=== PATIENT | female | born 1950 | race Caucasian/White ===

== ENCOUNTER → 2016-06-25 | Outpatient (REF) | payer MEDICARE, OTHER ==
[~2016-06-25] MED LIST: /AMLO25TA PO; /HCTZ25TA PO; ALBU17IN INH; AMLO5TAB2 PO; ASTE137S; CLAR10TA13 PO; HYDR7.5T30 PO; IBUP600T26 PO; IBUP80TA PO; KLOR20PO PO; METF500T PO; VALI5TAB PO; VENTAER INH; albuterol INH; tylenol #3 PO
[2016-06-25 21:40] LABS: PERCENT SATURATION 22.8 % (13.2-37.4)
== END ==
LOC: M SFHCADAM 14:41
PROVIDERS: ATTEND Family Medicine
DX: R19.4 Change in bowel habit (principal); R80.9 Proteinuria, unspecified; Z79.84 Long term (current) use of oral hypoglycemic drugs; Z79.899 Other long term (current) drug therapy; E11.9 Type 2 diabetes mellitus without complications
CPT/HCPCS: 82043; 82728; 83550; G0463

== ENCOUNTER → 2018-01-29 | Outpatient (CLI) | payer MEDICARE, OTHER | LOC: M RAD 10:27 | DX: C40.22 Malignant neoplasm of long bones of left lower limb (principal) | CPT/HCPCS: 78306 ==

== ENCOUNTER → 2018-02-14 | Outpatient (CLI) | payer MEDICARE, OTHER | LOC: M RAD 13:12 | DX: R93.7 Abnormal findings on diagnostic imaging of other parts of musculoskeletal system (principal); M25.562 Pain in left knee | CPT/HCPCS: 73721 ==

== ENCOUNTER → 2018-05-19 | Outpatient (REF) | payer MEDICARE, OTHER | LOC: M LAB REF 16:27 | PROVIDERS: ATTEND Ophthalmology | DX: L72.0 Epidermal cyst (principal) ==

== ENCOUNTER → 2019-04-14 | Outpatient (CLI) | payer MEDICARE, OTHER ==
[~2019-04-14] MED LIST changes: -/AMLO25TA PO; -/HCTZ25TA PO; +HYDR-3644 PO; +NORV2TAB PO
--- NOTE | 2019-04-14 12:04 | REP ---
BILATERAL SCREENING DIGITAL MAMMOGRAM WITH 3D TOMOSYNTHESIS: There are no palpable abnormalities or other breast complaints. The the patient states she is not had a clinical breast examination air. The Tyrer-Cuzick Score is: 5.0% . Comparison is 01/12/2014. There are scattered areas of fibroglandular density. There is no dominant mass, micro calcific cluster or architectural distortion that would indicate malignancy. There are benign calcifications bilaterally, not significantly changed. There are no additional findings on 3D tomosynthesiss. There is no change from the prior study. Impression: BIRADS/ACR category II mammogram. Benign findings. Recommendation: Routine annual screening mammography. This mammogram was interpreted with the aid of a FDA approved computer-aided detection system. A. Negative mammogram reports should not delay biopsy if a dominant or clinically suspicious mass is present. B. Not all breast cancers are identified by mammography or tomosynthesis. C. Adenosis and dense breasts may obscure an underlying neoplasm. Patient letter M1. Electronically Signed by Garry Lopez MD 04/14/2019 11:56 A
== END ==
LOC: M RAD 10:13
PROVIDERS: ATTEND Family Medicine
DX: Z12.31 Encounter for screening mammogram for malignant neoplasm of breast (principal)

== ENCOUNTER 2019-04-17 15:36 | Emergency (ER) | payer MEDICARE, OTHER ==
[~2019-04-17] VITALS: Ht 162.6 cm; Wt 71.9 kg
[2019-04-17] MEDS ORDERED: MAGN400C PO (15:50)
[2019-04-17] MEDS ORDERED: VITAD1000T PO (15:50)
[2019-04-17] MEDS ORDERED: NS 1,000 ML IV SCH (16:03)
[2019-04-17] MEDS ORDERED: ASPIRIN 81 MG CHEW TABLET PO ONE (16:15)
--- NOTE | 2019-04-17 16:49 | REP ---
Portable chest, 04:23 p.m., single AP view with the patient sitting: Comparisons are the chest CT dated 04/05/2015 and portable chest dated 11/26/2011. There are lung nodules in the lung bases bilaterally, unchanged from the comparison studies. By CT these are calcified granulomas. There is a mottled calcification projected over the liver. On the comparison CT there is a calcified liver mass. There are no infiltrates or effusions. The cardiac size is normal. The erasmo, mediastinum, skeletal structures are unremarkable. Impression: There are no acute cardiopulmonary findings. There are granulomas in the lungs bilaterally. There is a mottled calcified mass in the liver. Electronically Signed by Garry Lopez MD 04/17/2019 04:41 P
[2019-04-17 16:56] LABS: BASO % 0.4 % (0.0-1.0); EOS # 0.2 10^3/uL (0.0-0.5); EOS % 3.3 % (0.0-3.0); HEMATOCRIT 41.5 % (36.0-47.0); HEMOGLOBIN 13.3 g/dl (12.0-15.5); LYMPH # 1.8 10^3/uL (1.5-5.0); LYMPH % 25.5 % (24.0-44.0); MEAN CORPUSCULAR HEMOGLOBIN 28.5 pg (27.0-33.0); MEAN CORPUSCULAR VOLUME 89.1 fl (80.0-96.0); MONO # 0.5 10^3/uL (0.0-0.8); MONO % 7.3 % (0.0-5.0); NEUTROPHILS # 4.4 10^3/uL (1.5-8.5); NEUTROPHILS % 63.2 % (36.0-66.0); PLATELET COUNT, AUTOMATED 204 10^3/uL (150-450); RED BLOOD COUNT 4.66 10^6/uL (4.00-5.40)
[2019-04-17 17:16] LABS: INR 1.15; PROTHROMBIN TIME 14.4 SECONDS (11.8-14.0)
[2019-04-17] MEDS ORDERED: MECLIZINE 25 MG TABLET PO ONE (17:30)
[2019-04-17 17:32] LABS: ALBUMIN 3.8 GM/DL (3.2-5.2); ALT/SGPT 25 U/L (12-78); BILIRUBIN,DIRECT < 0.1 MG/DL (0.0-0.2); BILIRUBIN,TOTAL 0.3 MG/DL (0.2-1.0); BLOOD UREA NITROGEN 18 MG/DL (7-18); CALCIUM LEVEL 8.8 MG/DL (8.8-10.2); CARBON DIOXIDE LEVEL 30 MEQ/L (21-32); CHLORIDE LEVEL 108 MEQ/L (98-107); CK-MB VALUE MASS 1.5 NG/ML (<3.6); CPK CREATINE PHOSPHOKINASE 83 U/L (26-192); CREATININE FOR GFR 0.54 MG/DL (0.55-1.30); GLOMERULAR FILTRATION RATE > 60.0 (>45); GLUCOSE, FASTING 133 MG/DL (70-100); LIPASE 87 U/L (73-393); MB/CK RELATIVE INDEX 1.81 (< OR =4); NT-PRO BNP 113 PG/ML (<125); POTASSIUM SERUM 4.2 MEQ/L (3.5-5.1); SODIUM LEVEL 144 MEQ/L (136-145); TOTAL PROTEIN 7.1 GM/DL (6.4-8.2)
[2019-04-17] MEDS ORDERED: LABETALOL HCL 100 MG/20 ML VIAL IV STA ×2 (17:50→18:19)
[2019-04-17 17:57] LABS: TROPONIN I < 0.02 NG/ML (< 0.10)
[2019-04-17 18:32] VITALS: BP 180/76
[2019-04-17] MEDS ORDERED: MECL1TAB31 PO (19:06)
[2019-04-17 19:20] VITALS: BP 192/84
--- NOTE | 2019-04-17 21:58 | ECGEPIP ---
[facility] - ED Test Date: 2019-04-17 Pat Name: MANDI ROCHA Department: Room: - Gender: Female [employer] Content Specialist: : [id number] Requested By: REE CHILEL Order Number: [id number] Reading MD: Damion Garcia Measurements Intervals [place] Rate: 72 P: 36 OR: 167 QRS: -48 QRSD: 110 T: 60 QT: 401 QTc: 440 Interpretive Statements SINUS RHYTHM POSSIBLE LEFT ATRIAL ENLARGEMENT POOR R WAVE PROGRESSION LEFT ANTERIOR FASCICULAR BLOCK POSSIBLE LEFT VENTRICULAR HYPERTROPHY NO PRIORS FOR COMPARISON Electronically Signed on 04-17-2019 21:58:36 EST by Damion Garcia
== END 2019-04-17 19:21 | disposition home or self-care (01) ==
LOC: M ED 15:36
DX: R42 Dizziness and giddiness (principal); I10 Essential (primary) hypertension; Z88.2 Allergy status to sulfonamides; Z88.8 Allergy status to other drugs, medicaments and biological substances; Z88.1 Allergy status to other antibiotic agents; C34.90 Malignant neoplasm of unspecified part of unspecified bronchus or lung; C79.9 Secondary malignant neoplasm of unspecified site

== ENCOUNTER → 2019-04-29 | Outpatient (REF) | payer MEDICARE, OTHER ==
[~2019-04-29] MED LIST changes: +MAGN400C PO; +MECL1TAB31 PO; +VITAD1000T PO
[2019-04-29 14:34] LABS: APPEARANCE, URINE CLEAR (CLEAR); BACTERIA, URINE AUTO NEGATIVE (NEGATIVE); BILIRUBIN, URINE AUTO NEGATIVE (NEGATIVE); BLOOD, URINE BLOOD NEGATIVE (NEGATIVE); COLOR, URINE YELLOW (YELLOW); GLUCOSE, URINE (UA) AUTO NEGATIVE (NEGATIVE); KETONE, URINE AUTO NEGATIVE (NEGATIVE); LEUKOCYTE ESTERASE, URINE AUTO NEGATIVE (NEGATIVE); MUCUS, URINE SMALL (NEGATIVE); NITRITE, URINE AUTO NEGATIVE (NEGATIVE); PROTEIN, URINE AUTO NEGATIVE (NEGATIVE); RBC, URINE AUTO 1 /HPF (0-3); SPECIFIC GRAVITY URINE AUTO 1.013 (1.002-1.035); SQUAMOUS EPITHELIAL CELL UR AU 0 /HPF (0-6); UROBILINOGEN, URINE AUTO 0.2 mg/dL (0.0-2.0); WBC, URINE AUTO 0 /HPF (0-3)
== END ==
LOC: M SMT 12:54
PROVIDERS: ATTEND Nurse Practitioner Family
DX: R31.9 Hematuria, unspecified (principal)
CPT/HCPCS: 81001; 87086; G0463

== ENCOUNTER → 2019-05-23 | Outpatient (REF) | payer MEDICARE, OTHER | LOC: M LAB REF 10:18 | PROVIDERS: ATTEND Internal Medicine Cardiovascular Disease | DX: I11.9 Hypertensive heart disease without heart failure (principal) ==

== ENCOUNTER → 2019-05-24 | Outpatient (CLI) | payer MEDICARE, OTHER ==
--- NOTE | 2019-05-24 08:40 | REP ---
Renal Vascular Doppler Ultrasound: Right Kidney: Renal length the 10.5 cm. Extraparenchymal renal artery. Peak renal artery flow velocity the 216.3 cm/ sec Peak aortic velocity: 88.9 cm/sec Renal/aortic ratio: 2.4 Intraparenchymal renal arteries. Resistive index: upper pole 0.82 mid pole 0.83 lower pole 0.83 Acceleration time: upper pole 0.03 mid pole 0.02 lower pole 0.04 Left kidney: Renal length 12.6 cm. Extraparenchymal renal artery: Peak renal artery flow velocity: 170.4 cm/sec. Peak aortic velocity: 88.9 cm/sec Renal/aortic ratio: 1.9 Intraparenchymal renal arteries: Resistive index: Upper pole 0.77 mid pole 0.87 lower pole 0.82 Acceleration time: Upper pole 0.03 mid pole 0.03 lower pole 0.03 Impression: The peak right extrarenal artery peak flow velocity is elevated and the right renal/aortic ratio is borderline elevated. Additionally, the right kidney is 2 cm shorter in length and the left. These findings may represent right extrarenal artery stenosis . MRA or CTA might be considered for further evaluation. The resistive indices are mildly elevated bilaterally. This is nonspecific but may represent chronic renal disease. Bilateral renal ultrasound: The right kidney measures 10.5 x 6.6 x 5.2 cm. Left kidney measures 12.6 x 4.6 x 5.4 cm. The kidneys are normal size, however the right kidney is approximately 2 cm smaller in length and the left. There is no hydronephrosis on the right on the left. There are no renal calculi on the right on the left. There are no solid or cystic masses on the right on the left. Bladder: The bladder is empty and cannot be evaluated. Impression: Essentially negative renal ultrasound except that the right kidney is 2 cm smaller in length than left. Electronically Signed by Garry Lopez MD 05/24/2019 08:31 A
== END ==
LOC: M RAD 07:22
PROVIDERS: ATTEND Internal Medicine Cardiovascular Disease
DX: I12.9 Hypertensive chronic kidney disease with stage 1 through stage 4 chronic kidney disease, or unspecified chronic kidney disease (principal)

== ENCOUNTER → 2019-10-25 | Outpatient (REF) | payer MEDICARE, OTHER ==
[~2019-10-25] MED LIST changes: +D31000TA2 PO; -VITAD1000T PO
[2019-12-08 18:10] LABS: ALBUMIN 3.8 GM/DL (3.2-5.2); BLOOD UREA NITROGEN 18 MG/DL (7-18); CALCIUM LEVEL 9.2 MG/DL (8.8-10.2); CARBON DIOXIDE LEVEL 32 MEQ/L (21-32); CHLORIDE LEVEL 104 MEQ/L (98-107); CREATININE FOR GFR 0.75 MG/DL (0.55-1.30); GLOMERULAR FILTRATION RATE > 60.0 (>39); GLUCOSE, FASTING 138 MG/DL (70-100); MAGNESIUM LEVEL 1.8 MG/DL (1.8-2.4); PHOSPHORUS LEVEL 3.7 MG/DL (2.5-4.9); POTASSIUM SERUM 4.4 MEQ/L (3.5-5.1); SODIUM LEVEL 140 MEQ/L (136-145)
== END ==
LOC: M WUC 14:52
PROVIDERS: ATTEND Internal Medicine Cardiovascular Disease
DX: I11.9 Hypertensive heart disease without heart failure (principal)

== ENCOUNTER → 2019-12-06 | Outpatient (CLI) | payer MEDICARE, OTHER ==
--- NOTE | 2019-12-15 06:52 | REP ---
THREE-PHASE BONE SCAN OF THE LOWER EXTREMITIES HISTORY: Left femur surgery with brie placement. Evaluate possible infected/loosened total joint. COMPARISON: Radionuclide bone scan imaging is from 01/29/2018. No comparison radiographs are available. TECHNIQUE: 21.9 mCi of Technetium-99m MDP is injected and three phase imaging of the proximal thighs is acquired. Distal thigh delayed scan imaging is also included. SCINTIGRAPHIC FINDINGS: Anterior and posterior flow images show a very subtle diffuse hyperemia of the mid thigh on the right compared to the left. Blood pool images demonstrate this subtle asymmetry of thigh musculature uptake. This could be atrophy of the skeletal muscle on the left rather than hyperemia on the right. There is some heterogeneous uptake in the left thigh. Delayed scan images demonstrate a large photopenic area with increased uptake at its borders in the left distal diaphysis of the femur. This is more prominent than the diaphyseal photopenic lesion seen in the left distal femur on 01/29/2018. Its appearance suggests a neoplastic lesion with aggressive features. There is also photopenia in the region of the femoral head on the left consistent with a hip prosthesis. The patient apparently gives a history of epithelioid hemangioendothelioma of the left femur diagnosed in 1987, resected, and treated with radiation therapy. A left femoral brie was placed 32 years ago, according to the patient. There is arthritic uptake involving the lateral compartment of the right knee. The uptake previously noted in the tibial plateau region on the left on the 2018 bone scan has resolved. IMPRESSION: Findings consistent with a destructive bone lesion at midshaft level left femur with increased uptake at the edges of the lesion more prominently than seen on the 2018 study. This should be correlated with surgical history and radiographic findings. Recurrent neoplasm versus loosening less likely infection could have this appearance. There is photopenia of the femoral head on the left side as well compared to the prior study, question arthroplasty or hemiarthroplasty. Again, correlation with surgical history is required. Avascular necrosis of the femoral head could have this appearance in addition to surgical replacement. MTDD
== END ==
LOC: M RAD 09:53
PROVIDERS: ATTEND Orthopaedic Surgery
DX: M79.652 Pain in left thigh (principal); D48.9 Neoplasm of uncertain behavior, unspecified; Z98.1 Arthrodesis status
CPT/HCPCS: 78315; A9503

== ENCOUNTER → 2020-06-26 | Outpatient (CLI) | payer MEDICARE, OTHER ==
--- NOTE | 2020-06-26 15:15 | REP ---
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 COMPARISON: 01/29/2018 TECHNIQUE: 22 mCi of technetium 99 M MDP intravenously FINDINGS: Right calvarial photopenic defect status quo. Left femoral diaphyseal photopenic defect status quo. Increased activity seen previously in the proximal left tibia has abated. Degenerative type uptake pattern seen in the shoulders, elbows, wrists, hips, knees, and ankles status quo. No new areas of abnormal increased or decreased radionuclide accumulation. IMPRESSION: As above <Electronically signed by Too Melgar > 06/26/20 [id number]
== END ==
LOC: M RAD 09:46
PROVIDERS: ATTEND Family Medicine
DX: C40.22 Malignant neoplasm of long bones of left lower limb (principal)
CPT/HCPCS: 78306; A9503

== ENCOUNTER → 2021-07-12 | Outpatient (REF) | payer MEDICARE, OTHER ==
[~2021-07-12] MED LIST changes: -D31000TA2 PO; +VITA100093 PO
[2021-07-12 16:11] LABS: BACTERIA, URINE AUTO NEGATIVE (NEGATIVE); MUCUS, URINE SMALL (NEGATIVE); RBC, URINE AUTO 0 /HPF (0-3); SQUAMOUS EPITHELIAL CELL UR AU 2 /HPF (0-6); WBC, URINE AUTO 0 /HPF (0-3)
== END ==
LOC: M SMT 15:45
PROVIDERS: ATTEND Specialist
DX: R31.29 Other microscopic hematuria (principal)

== ENCOUNTER 2024-06-24 05:02 | Inpatient (IN) | payer MEDICARE, OTHER ==
[~2024-06-24] VITALS: Ht 162.6 cm; Wt 68.4 kg
[~2024-06-24 05:02] MED LIST changes: +MECL-209 PO; -MECL1TAB31 PO
[2024-06-24 05:50] LABS: BASO % 0.2 % (0.0-1.0); EOS % 0.4 % (0.0-3.0); HEMATOCRIT 40.5 % (36.0-47.0); HEMOGLOBIN 13.3 g/dl (12.0-15.5); LYMPH # 0.9 10^3/uL (1.5-5.0); MEAN CORPUSCULAR HEMOGLOBIN 27.7 pg (27.0-33.0); MEAN CORPUSCULAR HGB CONC 32.8 g/dl (32.0-36.5); MEAN CORPUSCULAR VOLUME 84.2 fl (80.0-96.0); MONO # 0.6 10^3/uL (0.0-0.8); MONO % 7.5 % (2.0-8.0); NEUTROPHILS % 81.7 % (36.0-66.0); PLATELET COUNT, AUTOMATED 271 10^3/uL (150-450); RED BLOOD COUNT 4.81 10^6/uL (4.00-5.40); WHITE BLOOD COUNT 8.6 10^3/uL (4.0-10.0)
[2024-06-24 06:16] LABS: ALBUMIN 3.8 G/DL (3.2-5.2); ALKALINE PHOSPHATASE 80 U/L (35-104); ALT/SGPT 134 U/L (7.0-40); AMYLASE 323 U/L (30-118); AST/SGOT 182 U/L (<34); BILIRUBIN,DIRECT 0.5 MG/DL (<0.4); BILIRUBIN,TOTAL 0.9 MG/DL (0.3-1.2); BLOOD UREA NITROGEN 17 MG/DL (9-23); CALCIUM LEVEL 9.4 MG/DL (8.3-10.6); CARBON DIOXIDE LEVEL 26 MMOL/L (20-31); CHLORIDE LEVEL 103 MMOL/L (98-107); CREATININE FOR GFR 0.48 MG/DL (0.55-1.30); GLOMERULAR FILTRATION RATE > 90.0 (>39); GLUCOSE, FASTING 224 MG/DL (74-106); POTASSIUM SERUM 3.8 MMOL/L (3.5-5.1); SODIUM LEVEL 140 MMOL/L (136-145); TOTAL PROTEIN 7.2 G/DL (5.7-8.2)
[2024-06-24 06:42] LABS: LIPASE 1792 U/L (12-53)
[2024-06-24] MEDS ORDERED: ISOVUE-370 76% 100ML VIAL As Ordered ONE (07:06)
[2024-06-24] MEDS: NS (Normal Saline) 0.9% 1,000 ML IV ONE (08:23)
[2024-06-24 09:53] LABS: KETONE, URINE AUTO RFX NEGATIVE (NEGATIVE); LEUKOCYTE ESTERASE UR AUTO RFX NEGATIVE (NEGATIVE); MUCUS, URINE RFX SMALL (NEGATIVE); NITRITE, URINE AUTO RFX NEGATIVE (NEGATIVE); RBC, URINE AUTO RFX 13 /HPF (0-3); SQUAM EPITHELIAL CELL UR AURFX 0 /HPF (0-6); WBC, URINE AUTO RFX 1 /HPF (0-3)
[2024-06-24] MEDS ORDERED: D3 S20002 PO (11:32)
[2024-06-24] MEDS ORDERED: AMLO10TA PO (11:32)
[2024-06-24] MEDS ORDERED: IBUP200C25 PO (11:32)
[2024-06-24] MEDS ORDERED: METF500T13 PO (11:32)
[2024-06-24] MEDS ORDERED: PANT40TA29 PO (11:32)
[2024-06-24] MEDS ORDERED: MAGN400T2 PO (11:32)
[2024-06-24] MEDS ORDERED: VENTAER INH (11:32)
[2024-06-24] MEDS ORDERED: AZEL1SPR4 NARES (11:32)
[2024-06-24] MEDS: INSULIN LISPRO (NovoLOG) PER UNIT SC SCH ×3 (12:00→21:00)
[2024-06-24] MEDS ORDERED: HOME MED LIST COMPLETE! XX SCH (12:05)
[2024-06-24] MEDS ORDERED: DEXTROSE 50% 50ML SYRINGE IV PRN (12:40)
[2024-06-24] MEDS ORDERED: ONDANSETRON 4MG 2ML VIAL IV PRN (12:40)
[2024-06-24] MEDS ORDERED: GLUCAGON INJ 1MG VIAL SC PRN (12:40)
[2024-06-24] MEDS ORDERED: MORPHINE 4 MG/ML 1ML VIAL IV PRN ×2 (12:40→14:05)
[2024-06-24] MEDS ORDERED: GLUCOSE 4 GM CHEW PO PRN (12:40)
[2024-06-24] MEDS: LR 1,000 ML IV SCH (13:46)
[2024-06-24] MEDS: PANTOPRAZOLE 40MG VIAL IV SCH (13:46)
[2024-06-24] MEDS ORDERED: KETOROLAC 30 MG/ML 1ML VIAL IV PRN (14:05)
[2024-06-24] MEDS ORDERED: ALBUTEROL 90 MCG/ACT 8GM HFA INHALER INH PRN (17:45)
[2024-06-24] MEDS ORDERED: RAMELTEON 8 MG TAB (ROZEREM) PO PRN (20:55)
[2024-06-24] MEDS: METOPROLOL TART 12.5 MG PER 1/2 TAB PO ONE (21:06)
[2024-06-24 21:53] VITALS: BP 190/75; TEMP 96.9; O2SAT 97
[2024-06-24 22:30] VITALS: BP 164/75
[2024-06-25 04:21] VITALS: BP 153/68; TEMP 98.3; O2SAT 97
[2024-06-25 06:27] LABS: BASO % 0.6 % (0.0-1.0); EOS # 0.2 10^3/uL (0.0-0.5); EOS % 3.1 % (0.0-3.0); HEMATOCRIT 37.5 % (36.0-47.0); HEMOGLOBIN 11.8 g/dl (12.0-15.5); LYMPH # 1.9 10^3/uL (1.5-5.0); LYMPH % 28.4 % (24.0-44.0); MEAN CORPUSCULAR HEMOGLOBIN 27.3 pg (27.0-33.0); MEAN CORPUSCULAR HGB CONC 31.5 g/dl (32.0-36.5); MEAN CORPUSCULAR VOLUME 86.8 fl (80.0-96.0); MONO # 0.6 10^3/uL (0.0-0.8); MONO % 9.3 % (2.0-8.0); NEUTROPHILS % 58.3 % (36.0-66.0); PLATELET COUNT, AUTOMATED 248 10^3/uL (150-450); RED BLOOD COUNT 4.32 10^6/uL (4.00-5.40); WHITE BLOOD COUNT 6.8 10^3/uL (4.0-10.0)
[2024-06-25 06:54] LABS: LIPASE 457 U/L (12-53)
[2024-06-25 06:57] LABS: ALBUMIN 3.2 G/DL (3.2-5.2); ALKALINE PHOSPHATASE 72 U/L (35-104); ALT/SGPT 131 U/L (7.0-40); AST/SGOT 87 U/L (<34); BILIRUBIN,TOTAL 0.6 MG/DL (0.3-1.2); BLOOD UREA NITROGEN 9 MG/DL (9-23); CALCIUM LEVEL 8.9 MG/DL (8.3-10.6); CARBON DIOXIDE LEVEL 28 MMOL/L (20-31); CHLORIDE LEVEL 108 MMOL/L (98-107); GLOMERULAR FILTRATION RATE > 90.0 (>39); GLUCOSE, FASTING 126 MG/DL (74-106); POTASSIUM SERUM 3.6 MMOL/L (3.5-5.1); SODIUM LEVEL 146 MMOL/L (136-145); TOTAL PROTEIN 6.2 G/DL (5.7-8.2)
[2024-06-25 07:26] VITALS: BP 178/80; TEMP 97.8; O2SAT 97
[2024-06-25 08:10] VITALS: BP 178/80
[2024-06-25] MEDS: METOPROLOL TART 12.5 MG PER 1/2 TAB PO SCH (08:10)
[2024-06-25 08:11] VITALS: BP 200/92
[2024-06-25 11:06] VITALS: BP 164/70
== END 2024-06-25 13:28 | disposition home or self-care (01) | DRG 439 ==
LOC: EDBD 05:02 → M ED 05:02 → M ED INP 12:37 → M PCU 21:53
PROVIDERS: ADMIT Internal Medicine Nephrology; ATTEND Internal Medicine Nephrology
DX: K85.90 Acute pancreatitis without necrosis or infection, unspecified (principal); K86.2 Cyst of pancreas; I10 Essential (primary) hypertension; E11.9 Type 2 diabetes mellitus without complications; J45.909 Unspecified asthma, uncomplicated; K80.20 Calculus of gallbladder without cholecystitis without obstruction; G25.0 Essential tremor; R91.8 Other nonspecific abnormal finding of lung field; E04.2 Nontoxic multinodular goiter; M47.816 Spondylosis without myelopathy or radiculopathy, lumbar region; Z85.118 Personal history of other malignant neoplasm of bronchus and lung; Z85.830 Personal history of malignant neoplasm of bone; E78.5 Hyperlipidemia, unspecified; K76.9 Liver disease, unspecified; Z88.2 Allergy status to sulfonamides; Z88.8 Allergy status to other drugs, medicaments and biological substances; Z79.899 Other long term (current) drug therapy